=== PATIENT | female | born 1960 | race Caucasian/White ===

== ENCOUNTER → 2020-04-29 14:46 | Outpatient (CLI) | payer OTHER, SELFPAY ==
--- NOTE | ~2020-04-29 | XR_ITS ---
EXAMINATION: XR chest 2V DATE: 04/29/2020 15:46 INDICATION: Cough TECHNIQUE: frontal and lateral views of the chest were obtained. COMPARISON: Chest radiograph dated 08/13/[address] dated 07/12/2013 FINDINGS: Mild biapical pleural-parenchymal scarring. Unchanged mild lingular atelectasis/scarring near the ape x of the heart. No new opacities, pulmonary edema, pleural effusion or pneumothorax. The cardiomedias tinal silhouette is normal. Mild thoracic spondylosis. IMPRESSION: 1. Chronic lingular atelectasis/scarring. No acute cardiopulmonary disease. Reviewed, dictated and finalized at location A.
== END ==
PROVIDERS: PCP Internal Medicine; Visit Provider Internal Medicine
DX: R05 Cough (principal); R91.8 Other nonspecific abnormal finding of lung field
CPT/HCPCS: 71046